=== PATIENT | female | born 1980 ===

== ENCOUNTER 2020-01-21 11:50 | Emergency (ER) | payer OTHER | END 2020-01-21 14:22 | disposition home or self-care (01) | LOC: ER 11:50 | DX: S80.212A Abrasion, left knee, initial encounter (principal); S40.012A Contusion of left shoulder, initial encounter; Y04.2XXA Assault by strike against or bumped into by another person, initial encounter; Y93.89 Activity, other specified; Y92.018 Other place in single-family (private) house as the place of occurrence of the external cause; Y99.8 Other external cause status ==